=== PATIENT | female | born 1995 | race Caucasian/White ===

== ENCOUNTER → 2024-02-28 | Outpatient (CLI) | payer OTHER | LOC: M LRY 08:50 | PROVIDERS: ATTEND Nurse Practitioner Family | DX: R14.0 Abdominal distension (gaseous) (principal) ==

== ENCOUNTER → 2024-04-06 | Outpatient (CLI) | payer OTHER | LOC: M RAD 09:59 | PROVIDERS: ATTEND Nurse Practitioner Family | DX: R10.11 Right upper quadrant pain (principal) ==

== ENCOUNTER 2024-05-08 10:37 | Day surgery (SDC) | payer OTHER ==
[~2024-05-08] VITALS: Ht 162.6 cm; Wt 54.4 kg
[~2024-05-08 10:37] MED LIST: NS 250 ML IV ONE
[2024-05-08] MEDS ORDERED: GLYCOPYRROLATE INJ 0.2 MG/ML 2 ML VIAL As Ordered ONE (11:47)
[2024-05-08] MEDS ORDERED: propofoL 200 MG/20 ML VIAL As Ordered ONE (11:47)
[2024-05-08] MEDS ORDERED: LIDOCAINE 2% 100MG/5ML SDV (FOR ANES.) As Ordered ONE (11:47)
[2024-05-08 12:27] VITALS: TEMP 99.2
[2024-05-08 12:39] VITALS: BP 107/65; O2SAT 100
== END 2024-05-08 12:51 | disposition home or self-care (01) ==
LOC: M OPP 10:37
PROVIDERS: ATTEND Internal Medicine Gastroenterology
DX: K92.1 Melena (principal); K64.8 Other hemorrhoids; R10.11 Right upper quadrant pain; R10.31 Right lower quadrant pain; R11.0 Nausea; R68.81 Early satiety; K21.9 Gastro-esophageal reflux disease without esophagitis; Z88.8 Allergy status to other drugs, medicaments and biological substances
CPT/HCPCS: 43239; 45378; 88305; J1596